=== PATIENT | female | born 1975 | race Caucasian/White ===

== ENCOUNTER → 2016-07-07 | Outpatient (CLI) | payer BC ==
[~2016-07-07] MED LIST: ACETAMINOPHEN PO; ACID CONTROL20 MG PO; AMOXICILLIN PO; BENTYL20 M1 PO; CYANOCOBALAM1000 MCG PO; DELSYM30 MG/5 ML PO; FLAGYL PO; HUMIRA40 MG/0.1 SQ; HYDROCODONE/APA1 T16 PO; LEVOFLOXACIN500 MG PO; NORCO1 TAB 10/3 PO; PREDNISONE PO; TYLENOL325 M1 PO
[2016-07-07 09:37] LABS: HEMATOCRIT 35.9 % (35.0-45.0); HEMOGLOBIN 11.8 gm/dL (12.0-16.0); MEAN CELL VOLUME 91.4 FL (83-96); MEAN CORPUSCULAR HGB CONC 32.8 g/dL (30-36); MEAN PLATELET VOLUME 6.4 FL (6.5-11.5); RED BLOOD COUNT 3.92 X10e (3.90-5.30); RED CELL DISTRIBUTION WIDTH 14.8 % (11.0-15.5); WHITE BLOOD COUNT 8.9 X10e3 (4.0-10.5)
[2016-07-07 10:22] LABS: ALBUMIN SERUM 3.8 g/dL (3.5-5.0); BILIRUBIN,TOTAL 0.5 mg/dL (0.2-2.0); BUN/CREATININE RATIO 11.42; CALCIUM SERUM 8.8 mg/dL (8.4-10.2); CREATININE SERUM 0.7 mg/dL (0.6-1.4); GLOM FILT RATE Estimated 109.1 mL/min (>60); POTASSIUM 3.9 mmol/L (3.5-5.1); PROTEIN TOTAL SERUM 6.4 g/dL (6.0-8.3)
[2016-07-07 10:39] LABS: FERRITIN 5 ng/mL (11-307)
== END | disposition home or self-care (01) ==
LOC: CLAB 09:10
PROVIDERS: Internal Medicine
DX: K50.90 Crohn's disease, unspecified, without complications (principal)
CPT/HCPCS: 36415; 80053; 82607; 82728; 83540; 84466; 85027